=== PATIENT | female | born 1975 | race Caucasian/White ===

== ENCOUNTER 2019-10-28 05:50 | Inpatient (IN) | payer OTHER ==
[~2019-10-28] VITALS: Ht 167.6 cm; Wt 156.5 kg
--- NOTE | ~2019-10-28 | OR ---
[facility] [address], [place] [address] Draft DATE OF OPERATION: 10/28/2019 SURGEON: India Hong MD CHARACTER ACTOR: Janes. PREOPERATIVE DIAGNOSES: Menometrorrhagia, right adnexal mass, morbid obesity. POSTOPERATIVE DIAGNOSES: Menometrorrhagia, right adnexal mass, morbid obesity. PROCEDURE: Laparoscopy, supracervical hysterectomy, right salpingo-oophorectomy, and left salpingectomy. ANESTHESIA: General ET. ESTIMATED BLOOD LOSS: 250 mL. DRAINS: Valverde catheter. INDICATIONS AND FINDINGS: The patient is a 44-year-old female, 2, para 2, who has been having abnormal bleeding for the past several months and in fact has become anemic from her bleeding. Endometrial biopsy was benign. During the course of evaluation for her bleeding, she was also found to have a large right adnexal mass, which was simple. It had been present for some time. At this point, she desires treatment for this. The patient is morbidly obese as well. She had been planned to have a bariatric procedure, but this has been canceled given the current status with the pandemic. At the time of surgery, exam under anesthesia was fairly normal. She is morbidly obese and it was extremely difficult to feel anything within the abdomen. At the time of laparoscopy, the uterus and left tube and ovary appeared normal. The right ovary was markedly enlarged, approximately 10 cm. It was smooth over the surface. Because of her morbid obesity, the planned procedure of a TLH-RSO could not be performed and was converted to an open procedure. PATIENT NAME: CHARLA CAMERON OPERATIVE REPORT DATE OF : 77 REPORT #: [id number] PHYSICIAN: INDIA HONG MD PCP: KENTON ROSAS REPORT IS CONFIDENTIAL AND NOT TO BE RELEASED WITHOUT AUTHORIZATION [facility] [address], [place] [address] Draft DESCRIPTION OF PROCEDURE: The patient was prepped and draped in the dorsal lithotomy position. The [place]ck speculum was required in the posterior cul-de-sac to see the cervix. The anterior lip was grasped with a single-tooth tenaculum. The cavity was then sounded to approximately 9 cm. The endocervical canal was then dilated and the VCare cannula was placed and the balloon inflated at the fundus. The tenaculum and speculum were removed. The cup was fitted over the cervix and the locking cap was fitted into place. Attention was then directed to the abdomen. The infraumbilical area was injected with 0.5% Marcaine plain. Incision was made with a knife and with extreme difficulty the fascia was finally identified and opened. Stay sutures of 0 Vicryl were placed. There was again significant difficulty in entering the peritoneum given her morbid obesity. Eventually, the peritoneum could be entered and the Benedict placed. This was the bariatric Benedict. The balloon was inflated, but this was right at the edge of the . Placement of the scope confirmed the proper positioning, though it was right on the edge. The abdomen was then inflated with a CO2 gas. An attempt was made to transilluminate the abdominal wall, but this was could not be done given her obesity. A secondary port was placed on her left side. This was slightly below the level of the umbilicus and far lateral. This area was injected with the Marcaine and incision was made with a knife and the port was placed under direct vision. Again, this was a longer 5 mm port. The right side port was placed in the same manner, but it was a Veress needle followed by the expanding port. This was right at the hub after placement. Following this, the pelvis was evaluated and unfortunately there was some bleeding noted from the right-sided port, which was felt that this would be pretty much impossible to control without opening her given her obesity. The patient was also having difficulty tolerating the procedure given the amount of Trendelenburg required. At this point, the laparoscopic procedure was abandoned and the decision was made to proceed with an open procedure. A Pfannenstiel skin incision was made after removal of the instruments. This was carried down through the fascia. At this point, on the right-hand side, it was apparent that the right inferior epigastric had been lacerated and this was repaired and cauterized with good hemostasis noted. The inferior and superior fascial flaps were then created. The muscles were bluntly divided and the peritoneum was already entered and the incision expanded inferiorly and superiorly. The Fabio retractor was then placed. The patient's right ovary was grasped at the level of the infundibulopelvic ligament x2 and the infundibulopelvic ligament divided and a free tie of 0 Vicryl followed by suture ligature of 0 Vicryl was placed on the infundibulopelvic. The utero-ovarian pedicle was then identified and also grasped x2 and divided. This was followed by suture ligature of 0 Vicryl. This allowed for removal of the right ovary and tube at this time. Following this, the round ligament areas on each side were grasped with straight Nicholas's such that the uterus could be brought up into view. The uterus was fairly small. The round ligament on the patient's left was divided and suture ligated with 0 Vicryl. The utero-ovarian pedicle was created by isolating a PATIENT NAME: CHARLA CAMERON OPERATIVE REPORT DATE OF : 77 REPORT #: [id number] PHYSICIAN: INDIA HONG MD PCP: KENTON ROSAS REPORT IS CONFIDENTIAL AND NOT TO BE RELEASED WITHOUT AUTHORIZATION [facility] [address], [place] [address] Draft clear area in the broad ligament and this was followed by a curved Z clamp. This pedicle was then divided followed by a free tie of 0 Vicryl, followed by a suture ligature of 0 Vicryl. Following this, the anterior leaf of the peritoneum was then incised allowing for partial bladder flap. The peritoneum was taken down posteriorly as well. The uterine vessels on the patient's left side were grasped at the level of the internal os and divided with the Gillette scissors. These were ligated x2 with 0 Vicryl. Attention was then directed to the patient's right side. The round ligament was divided and suture ligated with 0 Vicryl. The anterior peritoneum was taken down laterally for completion of the bladder flap. The peritoneum was taken down posteriorly as well. The uterine vessels were then grasped and divided. These were sutured with 0 Vicryl x2. On each side, the upper areas of the cardinal ligaments were grasped with straight Z clamps and divided and suture ligated with 0 Vicryl. Following this, it was felt that the cervix was quite long and given the difficulty with further dissection, it was felt that supracervical hysterectomy would be in her best interest given the difficulty of the procedure as well as the reasons for doing her procedure. Subsequently, the specimen was amputated leaving a portion of the cervix behind. [id number]'s were used to close over the area over the remaining cervix. There was some oozing in this area, which required additional cautery as well as additional sutures in this area. Following this, the decision was made to proceed with probable Tisseel, but as this needed to be thawed, this area was packed. The patient's remaining left tube was grasped and excised with a free tie of 0 Vicryl placed. Following this, the abdomen was then copiously irrigated and inspected. The cuff area appeared to be hemostatic at this point and Tisseel was sprayed over the vaginal cuff and open areas on the sidewalls to aid in hemostasis. The retractor was removed and the fascia was re-identified. On examining the fascia, it was apparent that there were multiple injuries to the fascia, probably from the attempted entry into the abdomen laparoscopically. These were separate from the umbilical site. This required the under surface of the fascia to be identified and the edges of this defect grasped and these were closed with running sutures of 0 Vicryl. The final defect was closed through the umbilical site after grasping the edges of the fascial incision and was also closed with running suture of 0 Vicryl. Following this, it was felt that the fascia was completely closed and there was no remaining defects. The peritoneum was then closed with a running suture of 3-0 Vicryl. The fascia was closed from each angle to the midline with a running suture of 0 Vicryl. The abdominal wall was quite deep and this layer was irrigated and inspected and bleeding points controlled with cautery. Andrew powder was used in the deep space given the depth of the subcu. Interrupted sutures of 3-0 Vicryl were used to close the deep space. The skin was closed with felecia on the Pfannenstiel incision. The skin incisions from the laparoscopy were closed with subcuticular sutures of 3-0 Vicryl Rapide. The patient tolerated the procedure well. She was taken to the recovery room in good condition. PATIENT NAME: CHARLA CAMERON OPERATIVE REPORT DATE OF : 77 REPORT #: [id number] PHYSICIAN: INDIA HONG MD PCP: KENTON ROSAS REPORT IS CONFIDENTIAL AND NOT TO BE RELEASED WITHOUT AUTHORIZATION [address] [place], [place] [address] Draft MD CHELITA Archer/JANA /[id number] Copies: ~ PATIENT NAME: CHARLA CAMERON OPERATIVE REPORT DATE OF : 77 REPORT #: [id number] PHYSICIAN: INDIA HONG MD PCP: KENTON ROSAS REPORT IS CONFIDENTIAL AND NOT TO BE RELEASED WITHOUT AUTHORIZATION
[~2019-10-28 05:50] MED LIST: CITALOPRAM HBR40 MG PO; COZAAR100 MG PO; LEVOTHYROXINE88 MCG PO; OZEMPIC1 MG/0.75 SUB-Q; TRAZODONE HCL50 MG PO
--- NOTE | 2019-10-28 13:05 | NUR ---
10/28/19 1305 Sheets,Andria 1251 PT ARRIVED TO PACU ON 6L VIA MASK, PT O2 SAT 89%. RN ENCOURAGES PT TO DEEP BREATHE AND O2 INCREASED TO 10L VIA MASK. PT REACTIVE TO TACTILE STIMULI. PT FALLS EASILY BACK TO SLEEP. 1253 O2 SAT MID 90S AND PT ASLEEP WITH HOB IN HIGH SHAW AND SMALL AMOUNT OF SNORING NOTED. VSS.
--- NOTE | 2019-10-28 14:10 | NUR ---
PT ADMITTED TO ROOM 118 FROM RECOVERY, PT IS OWN BED ON ARRIVAL, SLEEPY BUT EASILY AROUSABLE, ORIENTED, DENIES PAIN, FOLLOWED INSTRUCTIONS ON USE OF IS. ON ROOM AIR ON ARRIVAL, PLACED ON CONT. PULSE OX FOR MONITORING, ONEIL CATH PATENT WITH YELLOW URINE, ABD DRSG CDI, SCOPE SITES INTACT, SCDS ON, IV PATENT FINISHINGLR FROM RECOVERY. RT HERE TO SET UP CPAP. ORIENTED TO CALL LIGHT AND ROOM.
--- NOTE | 2019-10-28 15:10 | NUR ---
PT READILY OPENS EYES WHEN NAME IS CALLED, DENIES PAIN, WEARING CPAP PER HER REQUEST FOR ADDITIONAL COMFORT, DRSG REMAINS CDI, SCOPE SITES INTACT, ONEIL PATENT WITH LIGHT YELLOW URINE, IV PATENT, VS STABLE, CALL LIGHT IN EASY REACH.
--- NOTE | 2019-10-28 16:30 | NUR ---
PT IS NOW AWAKE, DR BAEZA IN TO SEE PT, ASKED FOR ICE WATER, MENU GIVEN TO ORDER, DECLINED 1 UNIT OF INSULIN FOR BLOOD SUGAR OF 148. TALKING ON PHONE NOW WITH .
--- NOTE | 2019-10-28 17:32 | NUR ---
REQUESTED PAIN MEDICATION FOR 10 ABD ACHING, ATE DEBBIE CRACKERS, AND DRINKING WATER, CONT. TO DENY NAUSEA, PERCOCET GIVEN FOR PAIN, LOOKING AT MENU FOR DINNER AT THIS TIME. PRICILLA SHEIKH. CLARICE PATENT.
--- NOTE | 2019-10-28 18:15 | NUR ---
PT STATES NOT MUCH RELIEF FROM PERCOCET FOR ABD PAIN, RATING PAIN 8/10 NOW, DILAUDID 1MG IV GIVEN, DINNER TRAY ARRIVED. NOTED SCANT AMOUNT DRAINAGE AT UMBILICUS, ABD DRSG IS CDI.
--- NOTE | 2019-10-28 19:25 | NUR ---
SHIFT REPORT RECIEVED FROM CAROLYN DELEON. PT RESTING IN BED. PAIN 07/20, PT DENIES NEED FOR PAIN MANAGEMENT AT THIS TIME. CPAP ON. ICE WATER PROVIDED. NO OTHER NEEDS AT THIS TIME. CALL LIGHT IN REACH.
--- NOTE | 2019-10-28 21:30 | NUR ---
PT RESTING IN BED, EYES CLOSED. RR EVEN, CPAP ON. IV FLUIDS INFUSING PER ORDER. CALL LIGHT IN REACH.
--- NOTE | 2019-10-28 22:27 | NUR ---
ASSESSMENT COMPLETED. IV WNL, FLUSHED WELL. ONEIL WNL. INCISION COVERED, SURGICAL PUNCTURE SITES DRY WITH SS BLOOD, STERI STRIPS, WNL. PAIN 5/10, PT DENIES NEED FOR PAIN INTERVENTION BEYOND SCHEDULED MEDS. SCHEDULED MEDS PROVIDED. NO OTHER NEEDS AT THIS TIME. CPAP ON. CALL LIGHT IN REACH.
--- NOTE | 2019-10-28 23:54 | NUR ---
PT RESTING IN BED, EYES CLOSED. RR EVEN, CPAP ON. CPOX 96%, RA. IV FLUIDS INFUSING PER ORDER. CALL LIGHT IN REACH.
--- NOTE | 2019-10-29 01:20 | NUR ---
PT RESTING IN BED, EYES CLOSED. RR EVEN, CPAP ON. IV FLUIDS INFUSING PER ORER. CALL LIGHT IN REACH.
--- NOTE | 2019-10-29 02:21 | NUR ---
VITALS AND I&OS DONE AND CHARTED. FRESH ICE WATER AND ICE PACK GIVEN. BEDSIDE TABLE AND CALL LIGHT IN REACH. EMPTIED GARBAGES. PT NEEDS NOTHING MORE AT THIS TIME.
--- NOTE | 2019-10-29 02:30 | NUR ---
PT CALLS TO STATE SHE HAS 7/10 ABD PAIN. PRN PAIN MED PROVIDED. ASSESSMENT COMPLETED. SURGICAL PUNCTURE SITES X3 WNL, DRIED BLOOD. INCISION COVERED WITH ABD PAD, NO NEW DRAINAGE NOTED, DRIED SS ON PAD. IT IS VERY PAINFUL FOR PT TO LAY BACK IN BED AND RAISE PANNUS FOR EXAMINATION. IV FLUIDS INFUSING PER ORDER. BOWEL TONES ACTIVE. ABD TENDER. NO OTHER NEEDS AT THIS TIME. CALL LIGHT IN REACH.
--- NOTE | 2019-10-29 04:20 | NUR ---
PT RESTING IN BED, EYES CLOSED. RR EVEN, CPAP ON. CALL LIGHT IN REACH.
--- NOTE | 2019-10-29 06:08 | NUR ---
SCHEDULED MEDS PROVIDED. NEW BAG OF IV FLUIDS PROVIDED.VS AND I&O COMPLETED. NO OTHER NEEDS AT THIS TIME. CALL LIGHT IN REACH.
--- NOTE | 2019-10-29 08:59 | NUR ---
DR BAEZA TO SEE PT, OK TO SHOWER TODAY IF SHE CHOOSES, CLARICE GOLDSTEIN'Kiki AT THIS TIME, BREAKFAST JUST ARRIVED, MEDICATED FOR PAIN. LUNGS CLEAR, DOING A GOOD JOB USING IS. DENIES FURTHER NEEDS.
--- NOTE | 2019-10-29 09:28 | NUR ---
SPOKE WITH PATIENT IN ROOM. PATIENT LIVES WITH . IS EMPLOYED AND DRIVES. PLANS TO RETURN HOME WITH WHO WILL PROVIDE TRANSPORTATION AT DISCHARGE. SHE FEELS SAFE TO RETURN HOME. USES NO DME. FEELS SHE HAS NO FINANCIAL HARDSHIP TO AFFORD MEDICATIONS, FOOD OR UTILITIES. CM WILL FOLLOW NEEDED.
--- NOTE | 2019-10-29 11:27 | NUR ---
PT SAT UP IN RECLINER FOR 2 HOURS, ONE PERSON ASSIST TO AMBULATE INTO BATHROOM TO VOID, TAKING PO FLUIDS WELL, ASKED IF SHE COULD LAY DOWN BEFORE LUNCH, ASSISTED ONTO BED WITH SCD'S ON. CALL LIGHT IN EASY REACH, ON PHONE AT THIS TIME, DENIES FURTHER NEEDS.
--- NOTE | 2019-10-29 12:47 | NUR ---
DOING WELL DRINKING ENSURE, TAKING FLUIDS WELL, FLAGYL NOW PO. PT SITTING UP IN RECLINER, RATES PAIN 2/10. DENIES ANY NEEDS.
--- NOTE | 2019-10-29 14:57 | NUR ---
ONE PERSON ASSIST INTO BATHROOM TO VOID, DECLINES SHOWER TODAY, WILL TAKE ONE IN AM BEFORE GOING HOME.
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
[2019-10-29] MEDS ORDERED: IBU-200200 MG PO (16:59)
[2019-10-29] MEDS ORDERED: CYCLOBENZAPRINE10 MG PO (16:59)
--- NOTE | 2019-10-29 17:00 | NUR ---
MED REC COMPLETE
--- NOTE | 2019-10-29 17:03 | NUR ---
DR BAEZA HERE TO SEE PT, PLEASED WITH PROGRESS TODAY, PLAN TO DC HOME TOMORROW. PT IN GOOD SPIRITS.
--- NOTE | 2019-10-29 19:16 | NUR ---
SHIFT REPORT RECIEVED FROM CAROLYN DELEON. PT RESTING IN BED. NO NEEDS AT THIS TIME. CALL LIGHT IN REACH.
--- NOTE | 2019-10-29 21:59 | NUR ---
ASSESSMENT COMPLETED. PT STATES ABD IS MILDLY DISTENDED, TENDER. PUNCTURE SITES WNL, DRIED BLOOD. INCISION WNL, COVERED BY ABD PAD. CMS INTACT. LUNGS CLEAR. IV CDI, WNL, FLUSHED WELL, WRAPPED WITH COBAN. CPAP ON. NO OTHER NEEDS. CALL LIGHT IN REACH.
--- NOTE | 2019-10-30 00:07 | NUR ---
PT RESTING IN BED, EYES CLOSED. RR EVEN, UNLABORED. CALL LIGHT IN REACH.
--- NOTE | 2019-10-30 01:48 | NUR ---
PT RESTING IN BED, EYES CLOSED. RR EVEN, CPAP ON. CALL LIGHT IN REACH.
--- NOTE | 2019-10-30 04:06 | NUR ---
PT RESTING IN BED. RR EVEN, CPAP ON. CALL LIGHT IN REACH.
--- NOTE | 2019-10-30 06:08 | NUR ---
ASSESSMENT COMPLETED. SCHEDULED MEDS PROVIDED. PUNCTURE SITES WNL, COVERED WITH BANDAIDS. INCISION WNL, COVERED WITH ABD PAD. NO OTHER NEEDS AT THIS TIME. CALL LIGHT IN REACH.
--- NOTE | 2019-10-30 06:24 | NUR ---
VITALS AND I&OS DONE AND CHARTED. FRESH ICE WATER GIVEN. GARBAGES EMPTIED. BEDSIDE TABLE AND CALL LIGHT IN REACH. PT NEEDS NOTHING MORE AT THIS TIME.
--- NOTE | 2019-10-30 08:03 | NUR ---
blood sugar done and charted. no other needs.
[2019-10-30] MEDS ORDERED: NORCO 5-325 TA1 EACH PO (08:26)
[2019-10-30] MEDS ORDERED: IBU800 MG PO (08:26)
[2019-10-30] MEDS ORDERED: ONDANSETRON ODT8 MG PO (08:27)
--- NOTE | 2019-10-30 10:36 | NUR ---
PATIENT RESTING WITH CPAP ON. VITALS AND I&OS DONE AND CHARTED. CALL LIGHTIN REACH.
--- NOTE | 2019-10-30 12:19 | PATH ---
[facility] [place] [facility] [address], [place] [address] Signed SPECIMEN(S): A RIGHT OVARY AND FALLOPIAN TUBE SPECIMEN(S): B LEFT FALLOPIAN TUBE SPECIMEN(S): C UTERUS SPECIMEN SOURCE: A. RIGHT OVARY AND FALLOPIAN TUBE B. LEFT FALLOPIAN TUBE C. UTERUS CLINICAL HISTORY: Right ovarian cyst, menometrorrhagia. FINAL PATHOLOGIC DIAGNOSIS: A. Fallopian tube and ovary, right, salpingo-oophorectomy: - Ovary with serous cystadenofibroma and an unremarkable fallopian tube. - The non-neoplastic ovarian stroma demonstrates surface epithelial inclusion cysts and a cystic follicle. - Paratubal cysts. B. Fallopian tube, left, salpingectomy: - Unremarkable fallopian tube. C. Uterus, hysterectomy: - Uterus with proliferative phase endometrium and leiomyoma. TWK:caw:[id number] MICROSCOPIC EXAMINATION: Histologic sections of all submitted blocks are examined by light microscopy. These findings, together with the gross examination, support the pathologic diagnosis. GROSS DESCRIPTION: Three specimens are received in three containers, labeled "JL." A. The specimen, labeled "JL, right ovary and fallopian tube," is received in formalin and consists of ovary with attached fallopian tube. The specimen weighs 288 grams. The ovary measures 12.5 x 7.2 x 6.0 cm. The serosal surface is pink-klein, smooth and fluctuating. Sectioning through the specimen reveals two cysts that measure 6.5 and 4.0 cm in diameter. The cysts are filled with a clear fluid. The bigger cyst shows areas of papillary excrescences that measure aggregate 5.0 x 1.2 cm. The remaining of the tissue is unremarkable. The fallopian tube shows fimbria and violaceous and smooth serosa and measures 5.5 x 1.0 cm. Sectioning through the tube reveals a PATIENT NAME: CHARLA CAMERON PATHOLOGY DATE OF : 77 REPORT #: [id number] PHYSICIAN: ARIANE PATHOLOGY PCP: KENTON ROSAS REPORT IS CONFIDENTIAL AND NOT TO BE RELEASED WITHOUT AUTHORIZATION [facility] [place] [facility] [address], [place] [address] Signed lumen that measures 1.0 cm in diameter. The lumen is filled with hemorrhagic fluid. Cassette Summary: (A1-A7) Ovarian cyst papillary excrescences, entirely submitted (A8) Fallopian tube, business office representative sections. B. The specimen, labeled "JL, left fallopian tube," is received in formalin and consists of fallopian tube that measures 2.7 x 0.8 cm. It shows fimbria and violaceous and smooth serosa. Sectioning through the tube is unremarkable. Manager Security And Safety sections are submitted in cassette (B1). C. The specimen, labeled "JL, uterus," is received in formalin and consists of uterus without cervix. The uterus measures 6.3 cm cornu to cornu, 4.7 cm anterior to posterior, 7.0 cm superior to inferior. The serosal surface is pink-klein, smooth. The uterus weighs 160 grams. The endometrial cavity measures 3.3 x 3.0 cm. It is almost completely obliterated with subendometrial nodule. The endometrial cavity is lined with pink-red, smooth endometrium. Sectioning through myometrium reveals previously mentioned white, firm, subendometrial nodule that measures 3.0 cm in greatest dimension. The remaining of the myometrium reveals a trabeculated surface. The myometrium measures up to 2.3 cm in thickness. The endometrium measures up to 0.3 cm in thickness. Sectioning through the nodule reveals a white, firm, whorled surface. Cassette Summary: (C1) Endomyometrium, business office representative sections (C2) Subendometrial nodule, business office representative sections JS (under the direct supervision of a pathologist) The Gross Description was prepared using a voice recognition system. The report was reviewed for accuracy; however, sound-alike word errors, addition and/or deletions may occur. If there is any question about this report, please contact Client Services. PERFORMING LABORATORY: The technical component was performed by [employer] [address] [place] [id number] (Java Integration Developer: Magda Jones MD; CLIA# [id number]). Professional interpretation was performed by [employer] [facility], [address] [place] [id number] (Java Integration Developer: David Fang DO; CLIA#: [id number]. Diagnostician: Espinoza Mcgrath MD PATIENT NAME: CHARLA CAMERON PATHOLOGY DATE OF : 77 REPORT #: [id number] PHYSICIAN: ARIANE PATHOLOGY PCP: KENTON ROSAS REPORT IS CONFIDENTIAL AND NOT TO BE RELEASED WITHOUT AUTHORIZATION [facility] [place] [facility] [address] [place] [id number] Signed Pathologist Electronically Signed 10/30/2019 Copies: ~ PATIENT NAME: LEADER GOMEZCHARLAJERICA PINEDA PATHOLOGY DATE OF : 77 REPORT #: [id number] PHYSICIAN: ARIANE ROBLEDO PCP: KENTON ROSAS REPORT IS CONFIDENTIAL AND NOT TO BE RELEASED WITHOUT AUTHORIZATION
--- NOTE | 2019-10-30 14:21 | NUR ---
PATIENT RESTING WITH CPAP ON. VITALS AND I&OS DONE AND CHARTED. WATER REFILLED. CALL LIGHT IN REACH. NO OTHER NEEDS AT THIS TIME.
--- NOTE | 2019-10-30 15:25 | NUR ---
DISCHARGE TEACHING COMPLETE. DISCUSSED FOLLOW UP, DIET, ACTIVITY, MEDICATIONS. PRINTED TEACHING GIVEN TO PT. PT VERBALIZED UNDERSTANDING OF PLAN. DISCHARGE VITALS TAKEN. ALL PERSONAL BELONGINGS PACKED.
== END 2019-10-30 15:00 | disposition home or self-care (01) | DRG 742 ==
LOC: DS 05:50 → MS 13:52 → DS 13:53 → MS 13:54
PROVIDERS: ADMIT Obstetrics & Gynecology
PROC: 0UT70ZZ Resection of Bilateral Fallopian Tubes, Open Approach (ICD-10-PCS; 2019-10-28)
PROC: 0WJJ4ZZ Inspection of Pelvic Cavity, Percutaneous Endoscopic Approach (ICD-10-PCS; principal; 2019-10-28 06:45)
PROC: 0UT90ZL Resection of Uterus, Supracervical, Open Approach (ICD-10-PCS; 2019-10-28 06:45)
PROC: 0UT00ZZ Resection of Right Ovary, Open Approach (ICD-10-PCS; 2019-10-28 06:45)
DX: N92.1 Excessive and frequent menstruation with irregular cycle (principal); Z68.43 Body mass index [BMI] 50.0-59.9, adult; E66.01 Morbid (severe) obesity due to excess calories; E11.9 Type 2 diabetes mellitus without complications; G47.33 Obstructive sleep apnea (adult) (pediatric); I10 Essential (primary) hypertension; E03.9 Hypothyroidism, unspecified; D50.0 Iron deficiency anemia secondary to blood loss (chronic); N83.201 Unspecified ovarian cyst, right side; F32.89 Other specified depressive episodes; Z53.31 Laparoscopic surgical procedure converted to open procedure; Z79.899 Other long term (current) drug therapy
CPT/HCPCS: 36415; 80048; 85025; 94660; 94760; 94762; J0694; J1100; J1170; J1644; J1885; J2405; J2704; J2765; J3010; J7121; U0002

== ENCOUNTER 2019-12-25 17:34 | Emergency (ER) | payer OTHER ==
[~2019-12-25] VITALS: Ht 167.6 cm; Wt 154.2 kg
[~2019-12-25 17:34] MED LIST changes: +CYCLOBENZAPRINE10 MG PO; +IBU-200200 MG PO; +IBU800 MG PO; +NORCO 5-325 TA1 EACH PO; +ONDANSETRON ODT8 MG PO
== END 2019-12-25 19:05 | disposition home or self-care (01) ==
LOC: ED 17:34
DX: B34.9 Viral infection, unspecified (principal); R51 Headache; I10 Essential (primary) hypertension; E11.9 Type 2 diabetes mellitus without complications; Z87.891 Personal history of nicotine dependence; Z79.899 Other long term (current) drug therapy
CPT/HCPCS: 99283